=== PATIENT | male | born 1960 | race Caucasian/White ===

== ENCOUNTER → 2019-12-18 | Emergency (ER) | payer BC ==
[~2019-12-18] VITALS: Ht 193 cm; Wt 130.9 kg
[~2019-12-18] MED LIST: PRINIVIL10 MG PO; [UNRECOGNIZED DRUG - REMARK]
[2019-12-18 16:57] VITALS: Ht 193 cm; Wt 130.9 kg
[2019-12-18 17:23] LABS: BASOPHILS 0.6 % (0-2); EOSINOPHILS 1.4 % (0-7); HEMATOCRIT 46.5 % (42.0-54.0); IMMATURE GRANULOCYTES 0.1 % (0-5); LYMPHOCYTES 22.6 % (15-50); MCHC 34.4 g/dL (31.0-37.0); MCV 98.9 fL (80.0-100.0); MEAN PLATELET VOLUME 11.4 fL (7.4-10.4); MONOCYTES 13.9 % (2-11); NEUTROPHILS 61.4 % (40-80); PLATELET COUNT 189 10x3/uL (130-400); RDW 13.5 % (11.5-14.5); WBC 8.8 10x3/uL (4.8-10.8)
[2019-12-18 17:26] VITALS: BP 148/93
[2019-12-18 17:26] LABS: APTT 30.1 SECONDS (22.8-39.4)
[2019-12-18 17:29] LABS: CALC OSMOLALITY 276 mosm/kg (275-300); CALCIUM 9.6 mg/dL (8.5-10.1); CARBON DIOXIDE 29.9 mmol/L (21.0-32.0); CHLORIDE - SERUM 103 mmol/L (98-107); CREATININE - SERUM 0.9 mg/dL (0.6-1.3); GLUCOSE 107 mg/dL (74-106); POTASSIUM - SERUM 4.7 mmol/L (3.5-5.1); SODIUM 138 mmol/L (136-145); UREA NITROGEN 14 mg/dL (7-18); eGFR NON AFRICAN AMERICAN > 90 mL/min (90-120)
[2019-12-18 17:30] LABS: INR 1.02 (0.85-1.17); PROTIME 13.3 SECONDS (11.6-15.0)
[2019-12-18 17:44] LABS: ALBUMIN 3.3 g/dL (3.4-5.0); ALKALINE PHOSPHATASE 159 U/L (30-120); ALT (SGPT) 65 U/L (10-68); BILIRUBIN - TOTAL 1.46 mg/dL (0.2-1.3); CKMB 0.7 U/L (0.0-3.6); CREATINE KINASE 179 UL (21-232); MAGNESIUM - SERUM 1.7 mg/dL (1.8-2.4); PROTEIN - SERUM 8.2 g/dL (6.4-8.2); THYROID STIMULATING HORMONE 2.99 uIU/mL (0.36-3.74)
[2019-12-18 17:46] LABS: TROPONIN-I < 0.017 ng/mL (0.000-0.060)
== END | disposition home or self-care (01) ==
LOC: D.ER 16:40
PROVIDERS: Family Medicine
DX: I62.9 Nontraumatic intracranial hemorrhage, unspecified (principal); I10 Essential (primary) hypertension; R53.1 Weakness; R29.810 Facial weakness